=== PATIENT | male | born 1985 | race Caucasian/White ===

== ENCOUNTER 2018-12-20 10:21 | Emergency (ER) | payer OTHER ==
[~2018-12-20] VITALS: Ht 167.6 cm; Wt 96.0 kg
[2018-12-20] MEDS ORDERED: PROPOFOL 10 MG/ML, 20ML ONE ×2 (11:11→13:07)
[2018-12-20 11:35] VITALS: BP 138/81
[2018-12-20] MEDS ORDERED: FLUT1DIS IH (11:37)
[2018-12-20] MEDS ORDERED: ALBU0.63 NEB (11:37)
--- NOTE | 2018-12-20 11:38 | NUR ---
PT PRESENTS WITH DISLOCATED JAW DANAYCE 0430 THIS MORNING Addendum: 12/20/18 at 1138 by PREETI SINCE*
--- NOTE | 2018-12-20 11:39 | NUR ---
PT ATTACHED TO ALL MONITORS. PT READY FOR PROCEDURAL SEDATION. CONSENT SIGNED.
[2018-12-20] MEDS ORDERED: DIAZEPAM 5 MG/ML, 2ML ONE ×2 (11:54→12:14)
[2018-12-20] MEDS ORDERED: DIAZEPAM 5 MG/ML, 2ML IV ONE (12:00)
[2018-12-20] MEDS ORDERED: KETOROLAC 30 MG/1 ML ONE (12:00)
[2018-12-20] MEDS ORDERED: KETOROLAC 30 MG/1 ML IVPush ONE (12:00)
[2018-12-20] MEDS ORDERED: DIAZEPAM 5 MG/ML, 10ML VIAL IV ONE (12:30)
[2018-12-20] MEDS ORDERED: PROPOFOL 10 MG/ML, 20ML IVPush ONE ×2 (13:00→14:00)
--- NOTE | 2018-12-20 13:39 | NUR ---
JAW REDUCTION COMPLETED WITH PROCEDURAL SEDATION. PT TOLERATED PROCEDURE WELL. VS STABLE. WILL CONTINUE TO MONITOR
--- NOTE | 2018-12-20 13:39 | NUR ---
JAW SUCCESSFULLY REDUCED AT 1330 WITH CYNDI ROSA
== END 2018-12-20 14:25 | disposition home or self-care (01) ==
LOC: ED 12:16
DX: S03.01XA Dislocation of jaw, right side, initial encounter (principal); X58.XXXA Exposure to other specified factors, initial encounter; Y93.89 Activity, other specified; Y92.89 Other specified places as the place of occurrence of the external cause; Y99.8 Other external cause status
CPT/HCPCS: 21480; 70100; 96374; 96375; 99285; J1885; J2704; J3360